=== PATIENT | female | born 1995 | race Caucasian/White ===

== ENCOUNTER 2021-11-04 15:53 | Emergency (ER) | payer MEDICAID ==
[~2021-11-04] VITALS: Ht 172.7 cm; Wt 120.0 kg
[2021-11-04 15:59] VITALS: BP 123/90
[2021-11-04] MEDS ORDERED: IBUPROFEN 600MG TABLET PO ONE (16:45)
[2021-11-04] MEDS ORDERED: AMOX-494 MT (17:52)
== END 2021-11-04 18:15 | disposition home or self-care (01) ==
LOC: ER 15:53
DX: B34.9 Viral infection, unspecified (principal); Z20.822 Contact with and (suspected) exposure to COVID-19; Z88.8 Allergy status to other drugs, medicaments and biological substances; Z91.040 Latex allergy status
CPT/HCPCS: 81025; 87426; 87804; 99283; C9803

== ENCOUNTER 2022-06-21 23:58 | Emergency (ER) | payer MEDICAID, OTHER ==
[~2022-06-21] VITALS: Ht 172.7 cm; Wt 113.0 kg
[~2022-06-21 23:58] MED LIST: AMOX-494 MT
[2022-06-22] MEDS ORDERED: KETOROLAC 30MG/ML VIAL IM STA (00:30)
[2022-06-22 00:51] LABS: BASOPHILS % 0.5 % (0.0-2.0); EOSINOPHILS % 4.3 % (0.0-5.0); HEMATOCRIT. 44.1 % (36.0-48.0); LYMPHOCYTES % 41.1 % (20.0-50.0); MEAN CORPUSCULAR HEMOGLOBIN 30.1 pg (28.0-32.0); MEAN CORPUSCULAR VOLUME 88.8 fL (81.0-99.0); MEAN PLATELET VOLUME 9.1 fl (7.4-10.4); MONOCYTES % 7.6 % (2.0-8.0); NEUTROPHILS % 46.5 % (40.0-76.0); PLATELET 261 x1000/uL (130-400); RED BLOOD CELL COUNT 4.97 mill/uL (4.2-5.4); RED CELL DISTRIBUTION WIDTH 12.8 % (11.6-14.6)
[2022-06-22 01:02] LABS: CHLORIDE 110 mEq/L (98-107)
[2022-06-22 01:10] LABS: HCG SCREEN NEGATIVE
[2022-06-22] MEDS ORDERED: BACL-141 MT (03:01)
[2022-06-22] MEDS ORDERED: NAPR-1176 MT (03:01)
[2022-06-22] MEDS ORDERED: KETOROLAC 30MG/ML VIAL IM NR (03:30)
[2022-06-22 03:31] VITALS: BP 108/85
== END 2022-06-22 03:35 | disposition home or self-care (01) ==
LOC: ER 23:58
DX: R09.1 Pleurisy (principal); Z91.040 Latex allergy status; Z88.8 Allergy status to other drugs, medicaments and biological substances
CPT/HCPCS: 36415; 71045; 80053; 81025; 83690; 84484; 84703; 85025; 85379; 96372; 99284; J1885; Z7610